=== PATIENT | female | born 1995 | race American Indian/Alaskan Native ===

== ENCOUNTER 2017-09-04 13:58 | Emergency (ER) | payer SELFPAY | END 2017-09-04 21:57 | disposition left against medical advice (07) | LOC: ED 13:58 | DX: R07.9 Chest pain, unspecified (principal); Z53.21 Procedure and treatment not carried out due to patient leaving prior to being seen by health care provider ==

== ENCOUNTER 2020-10-04 12:23 | Emergency (ER) | payer BC ==
[2020-10-04 12:37] VITALS: BP 118/70
--- NOTE | 2020-10-04 12:47 | Emergency Department Report ---
ED Female HPI - General Chief complaint: Vaginal Bleeding Stated complaint: MISCARRIAGE/POSS PREG/WKS ? Time Seen by Provider: 10/04/20 12:30 Source: patient Mode of arrival: Ambulatory Limitations: No Limitations - History of Present Illness Initial comments: 25-year-old -[place] female presents to the emergency room concern for possible miscarriage or retained product. Patient states that she had a miscarriage in August and had stopped bleeding on 09/13/2020. Patient states then she started bleeding on 09/30/2020. She reports she has some intermittent nausea but no vomiting. She is 2 para 0. She reports that she was told that she had a miscarriage as her hCG levels were dropping. Patient is concerned that because her hCG levels are dropping and she is supposed to be having a miscarriage concern how they would know if she has any retained products. Patient denies any abdominal pain. No fever no chills. She does not recall her last normal period as she does not track it. She states now she has a Cough flow that she is just started. Complaint: vaginal bleeding Onset/Timin -: days(s) - Related Data Allergies Allergy/AdvReac Type Severity Reaction Status Date / Time No Known Allergies Allergy Unverified 10/04/20 12:30 ED Review of Systems ROS: Stated complaint: MISCARRIAGE/POSS PREG/WKS ? Other details as noted in HPI ED Past Medical Hx - Past Medical History Previous Medical History?: No - Surgical History Past Surgical History?: No - Social History Smoking Status: Never Smoker Substance Use Type: None ED Physical Exam - General Limitations: No Limitations ED Course Vital Signs 10/04/20 12:36 Temperature 98.7 F Pulse Rate 90 Respiratory 18 Rate Blood Pressure 118/70 O2 Sat by Pulse 95 Oximetry ED Medical Decision Making - Lab Data Result diagrams: 10/04/20 12:58 - Medical Decision Making 25-year-old -[place] female presents to the emergency room concern for possible miscarriage or retained product. Patient states that she had a miscarriage in August and had stopped bleeding on 09/13/2020. Patient states then she started bleeding on 09/30/2020. She reports she has some intermittent nausea but no vomiting. She is 2 para 0. She reports that she was told that she had a miscarriage as her hCG levels were dropping. Patient is concerned that because her hCG levels are dropping and she is supposed to be having a miscarriage concern how they would know if she has any retained products. Patient denies any abdominal pain. No fever no chills. She does not recall her last normal period as she does not track it. She states now she has a Cough flow that she is just started. CBC, hCG, ED RhoGam, urinalysis ordered. Discussed with patient based on her hCG levels will determine if we are able to do an ultrasound. Discussed with patient that once her hCG levels are less than 500 there is no concern for . Also discussed with patient that she has no abdominal pain no fever no signs or symptoms of sepsis which we will get most likely with retained product. Patient is not sure how far she was. Critical care attestation.: If time is entered above; I have spent that time in minutes in the direct care of this critically ill patient, excluding procedure time. ED Disposition Clinical Impression: Vaginal bleeding Disposition: DC-01 TO HOME OR SELFCARE Is pt being admited?: No Does the pt Need Aspirin: No Condition: Stable Additional Instructions: hCG/ hormone is negative is less than 2. Urinalysis is negative for any infection. Blood work shows you are not anemic. I recommend for you to just follow-up with your primary care provider or [facility]. Referrals: PRIMARY CARE, [Primary Care Provider] - 3-5 Days [facility] [Provider Group] - 3-5 Days Forms: Work/School Release Form(ED)
--- NOTE | 2020-10-04 12:57 | Emergency Department Report ---
ED Female HPI - General Chief complaint: Vaginal Bleeding Stated complaint: MISCARRIAGE/POSS PREG/WKS ? Time Seen by Provider: 10/04/20 12:30 - Related Data Allergies Allergy/AdvReac Type Severity Reaction Status Date / Time No Known Allergies Allergy Unverified 10/04/20 12:30 ED Review of Systems ROS: Stated complaint: MISCARRIAGE/POSS PREG/WKS ? Other details as noted in HPI ED Past Medical Hx - Past Medical History Previous Medical History?: No - Surgical History Past Surgical History?: No - Social History Smoking Status: Never Smoker Substance Use Type: None ED Course Vital Signs 10/04/20 12:36 Temperature 98.7 F Pulse Rate 90 Respiratory 18 Rate Blood Pressure 118/70 O2 Sat by Pulse 95 Oximetry ED Medical Decision Making - Lab Data Result diagrams: 10/04/20 12:58 Critical care attestation.: If time is entered above; I have spent that time in minutes in the direct care of this critically ill patient, excluding procedure time. ED Disposition Condition: Stable
[2020-10-04 13:21] LABS: Basophils % (Auto) 1.1 % (0.0-1.8); Eosinophils # (Auto) 0.1 K/mm3 (0.0-0.4); Eosinophils % (Auto) 3.3 % (0.0-4.3); Hematocrit 37.5 % (30.3-42.9); Hemoglobin 11.9 gm/dl (10.1-14.3); Lymphocytes # (Auto) 1.5 K/mm3 (1.2-5.4); Mean Corpuscular HGB Conc 32 % (30-34); Mean Corpuscular Volume 81 fl (79-97); Monocytes # (Auto) 0.3 K/mm3 (0.0-0.8); Platelet Count 307 K/mm3 (140-440); Red Blood Count 4.65 M/mm3 (3.65-5.03); Red Cell Distribution Width 18.8 % (13.2-15.2)
--- NOTE | 2020-10-04 13:30 | Emergency Department Report ---
Blank Doc - Documentation Documentation: 25-year-old female that presents with vaginal bleeding times several days. Was seen by [facility] last month and was diagnosed with miscarriage. Patient was sent by [facility] for further evaluation for possible possible products of conception. 1- This initial assessment/diagnostic orders/clinical plan/ treatment(s) is/are subject to change based on pt's health status, clinical progression and re- assessment by fellow clinical providers in the ED. Further treatment and workup at subsequent clinical provers discretion. Patient/guardians urged not to elope from ED as their condition may be serious if not clinically assessed and managed. 2-labs 3-UA
[2020-10-04 14:45] LABS: Bilirubin,Urine NEG (Negative); Blood,Urine MOD (Negative); Color,Urine Yellow (Yellow); Mucus,Urine 2+ /HPF
== END 2020-10-04 15:20 | disposition home or self-care (01) ==
LOC: ED 12:23
DX: N93.9 Abnormal uterine and vaginal bleeding, unspecified (principal)
CPT/HCPCS: 36415; 81001; 84702; 85025; 86900; 86901